=== PATIENT | female | born 1950 | race Caucasian/White ===

== ENCOUNTER → 2020-09-27 | Outpatient (CLI) | payer MEDICARE, BC ==
--- NOTE | 2020-09-27 11:52 | US ---
EXAMINATION TYPE: US abdomen complete DATE OF EXAM: 09/27/2020 COMPARISON: NONE CLINICAL HISTORY: R74.0 NONSPECIFIC ELEVATION OF LEVELS. no symptoms, elevated labs EXAM MEASUREMENTS: Liver Length: 16.4 cm Gallbladder Wall: 0.2 cm CBD: 0.6 cm Spleen: 12.5 cm Right Kidney: 9.3 x 4.4 x 5.3 cm Left Kidney: 10.2 x 4.1 x 6.5 cm large habitus and bowel gas limits exam Pancreas: limited views appear wnl Liver: difficult to penetrate Gallbladder: wnl Evidence for sonographic Lin's sign: no CBD: wnl Spleen: wnl Right Kidney: wnl Left Kidney: wnl Upper IVC: wnl Abd Aorta: areas are obscured by bowel gas IMPRESSION: 1. Visualized abdomen ultrasound
== END | disposition home or self-care (01) ==
LOC: RADUSWWP 10:04
PROVIDERS: ATTEND Internal Medicine
DX: R74.01 Elevation of levels of liver transaminase levels (principal)
CPT/HCPCS: 76700